=== PATIENT | female | born 1965 | race Caucasian/White ===

== ENCOUNTER 2017-09-18 12:26 | Emergency (ER) | payer MEDICAID ==
[~2017-09-18] VITALS: Ht 175.3 cm; Wt 145.0 kg
[2017-09-18 12:37] VITALS: BP 121/78
== END 2017-09-18 14:13 | disposition home or self-care (01) ==
LOC: ER 12:28
DX: G89.29 Other chronic pain (principal); M25.551 Pain in right hip; M25.561 Pain in right knee; Z88.0 Allergy status to penicillin; Z88.5 Allergy status to narcotic agent
CPT/HCPCS: 73502; 73564; 99284

== ENCOUNTER 2017-09-20 13:14 | Inpatient (IN) | payer MEDICAID ==
[~2017-09-20] VITALS: Ht 175.3 cm; Wt 144.5 kg
[2017-09-20] MEDS ORDERED: levoFLOXACIN-Levaquin 750MG/D5 150 ML IV ONE (13:45)
[2017-09-20 14:11] LABS: BASOPHILS # (AUTO) 0.1 X10'3 (0-0.2); BASOPHILS % (AUTO) 0.6 % (0-1); EOSINOPHILS % (AUTO) 0.4 % (0-6); HEMATOCRIT 34.8 % (35.0-45.0); HEMOGLOBIN 11.7 g/dl (12.0-16.0); LYMPHOCYTES # (AUTO) 1.3 X10'3 (1.1-4.8); MEAN CORPUSCULAR HEMOGLOBIN 28.1 PG (27.0-31.0); MEAN CORPUSCULAR HGB CONC 33.6 % (33.0-36.5); MEAN CORPUSCULAR VOLUME 83.5 FL (78-98); MEAN PLATELET VOLUME 7.7 FL (7.4-10.4); MONOCYTES # (AUTO) 0.5 X10'3 (0-0.9); MONOCYTES % (AUTO) 5.2 % (2-12); NEUTROPHILS # (AUTO) 7.3 X10'3 (1.8-7.7); NEUTROPHILS % (AUTO) 79.8 % (42-75); PLATELET COUNT 286 X10'3 (140-440); RED BLOOD COUNT 4.17 X10'6 (4.20-5.60); RED CELL DISTRIBUTION WIDTH 13.8 % (11.5-14.5); WHITE BLOOD COUNT 9.1 X10'3 (4.5-11.0)
[2017-09-20 14:21] LABS: PARTIAL THROMBOPLASTIN TIME 31 SECONDS (22-32); PROTHROMBIN TIME 10.7 SECONDS (9.0-12.0)
[2017-09-20 14:26] LABS: ALANINE AMINOTRANSFERASE 11 U/L (12-78); ALBUMIN 2.9 G/DL (3.4-5.0); ALBUMIN/GLOBULIN RATIO 0.6 (1.1-1.5); ALKALINE PHOSPHATASE 77 IU/L (46-116); ANION GAP 11 (8-16); ASPARTATE AMINO TRANSFERASE 21 U/L (10-37); BILIRUBIN,TOTAL 0.3 MG/DL (0.1-1.0); BLOOD UREA NITROGEN 15 MG/DL (7-18); BUN/CREATININE RATIO 18.5 (6.6-38.0); CALCIUM 9.8 MG/DL (8.5-10.1); CHLORIDE 102 MMOL/L (99-107); CREATININE 0.81 MG/DL (0.40-0.90); GLUCOSE 181 MG/DL (70-104); MAGNESIUM 1.1 MG/DL (1.5-2.4); POTASSIUM 4.2 MMOL/L (3.5-5.1); SODIUM 142 MMOL/L (135-145); eGFR 74 ML/MIN
[2017-09-20] MEDS ORDERED: diphenhydrAMINE 50 mg/ml inj IV ONE (14:35)
[2017-09-20] MEDS ORDERED: morphine 4 MG/ML inj SYRINge IV ONE (14:35)
[2017-09-20 15:49] LABS: CLARITY,URINE Clear (Clear); COLOR,URINE Yellow (Yellow); GLUCOSE, URINE 100 mg/dl (Neg); KETONES,URINE Negative (Neg); LEUKOCYTE ESTERASE ,URINE Negative (Neg); NITRITES, URINE Negative (Neg); OCCULT BLOOD,URINE Negative (Neg); PH,URINE 5.5 (4.8-8.0); PROTEIN,URINE Negative (Neg); UA COLLECTION TYPE FOLEY CATH; UROBILINOGEN,URINE 0.2 E.U/dL (0.2-1.0)
[2017-09-20 16:10] LABS: URINE HCG NEGATIVE (NEG)
[2017-09-20] MEDS ORDERED: ondansetron/PF 4mg/2ml inj IV PRN ×2 (17:40→18:25)
[2017-09-20] MEDS ORDERED: potassium Cl 40MEQ/NS 500ml 500 ML IV PRN ×2 (17:40)
[2017-09-20] MEDS ORDERED: magnesium 2GM in 50ml NS 50 ML IV PRN (17:40)
[2017-09-20] MEDS ORDERED: HYDROcodone/acetaminophen 5mg/325mg tablet PO PRN (17:40)
[2017-09-20] MEDS: K and/or MAG REPLACEMENT MC SCH (17:40)
[2017-09-20] MEDS ORDERED: acetaminophen 325mg tablet PO PRN ×3 (17:40→18:25)
[2017-09-20] MEDS ORDERED: magnesium hydroxide 30ml (MOM) UD suspension PO PRN ×2 (17:40→18:25)
[2017-09-20] MEDS ORDERED: mag hydrox/Alum hydrox/simeth 30ml oral suspension PO PRN ×2 (17:40→18:25)
[2017-09-20] MEDS ORDERED: magnesium Cl slow-release 64mg tablet PO PRN (17:40)
[2017-09-20] MEDS ORDERED: magnesium 4gm in 100ml NS 100 ML IV PRN (17:40)
[2017-09-20] MEDS ORDERED: potassium Cl 20 mEq SR tablet PO PRN ×2 (17:40)
[2017-09-20] MEDS ORDERED: morphine 2 MG/ML inj. syringe IV PRN (17:40)
[2017-09-20] MEDS ORDERED: bisacodyl 10mg suppository rectal RC STA (17:49)
[2017-09-20] MEDS: HYDROcodone/acetaminophen 10/325mg tab PO PRN ×2 (18:11→22:19)
[2017-09-20] MEDS: normal saline 1000ml 1,000 ML IV SCH (18:55)
[2017-09-20] MEDS: heparin, porcine 5000 units/ml vial SQ SCH (20:03)
[2017-09-20] MEDS: diatr meglu/diatrizoate 30ml oral sol.-(3 dose) bottle PO SCH (20:22)
[2017-09-20] MEDS ORDERED: temazepam 15mg capsule PO PRN (21:00)
[2017-09-20] MEDS ORDERED: CLON2TAB PO (21:55)
[2017-09-20] MEDS ORDERED: GEMF600T3 PO (21:55)
[2017-09-20] MEDS ORDERED: MIRT30TA8 PO (21:55)
[2017-09-20] MEDS ORDERED: GLIP5TAB13 PO (21:55)
[2017-09-20] MEDS ORDERED: PRAV20TA4 PO (21:55)
[2017-09-20] MEDS ORDERED: FLUO20CA39 PO (21:55)
[2017-09-20] MEDS ORDERED: GABA-532 PO (21:55)
[2017-09-20] MEDS ORDERED: METF500T PO (21:55)
[2017-09-21] MEDS: HYDROcodone/acetaminophen 10/325mg tab PO PRN ×4 (02:54→19:00)
[2017-09-21 05:48] LABS: BASOPHILS # (AUTO) 0.1 X10'3 (0-0.2); BASOPHILS % (AUTO) 1.3 % (0-1); EOSINOPHILS # (AUTO) 0.1 X10'3 (0-0.9); EOSINOPHILS % (AUTO) 1.6 % (0-6); HEMATOCRIT 32.6 % (35.0-45.0); HEMOGLOBIN 11.1 g/dl (12.0-16.0); LYMPHOCYTES # (AUTO) 1.3 X10'3 (1.1-4.8); LYMPHOCYTES % (AUTO) 16.4 % (21-51); MEAN CORPUSCULAR HEMOGLOBIN 28.5 PG (27.0-31.0); MEAN CORPUSCULAR VOLUME 83.6 FL (78-98); MEAN PLATELET VOLUME 8.1 FL (7.4-10.4); MONOCYTES # (AUTO) 0.6 X10'3 (0-0.9); MONOCYTES % (AUTO) 7.1 % (2-12); NEUTROPHILS # (AUTO) 5.8 X10'3 (1.8-7.7); NEUTROPHILS % (AUTO) 73.6 % (42-75); PLATELET COUNT 274 X10'3 (140-440); RED BLOOD COUNT 3.89 X10'6 (4.20-5.60); RED CELL DISTRIBUTION WIDTH 13.6 % (11.5-14.5); WHITE BLOOD COUNT 7.9 X10'3 (4.5-11.0)
[2017-09-21 06:17] LABS: PROTHROMBIN TIME 10.7 SECONDS (9.0-12.0)
[2017-09-21 06:22] LABS: ALBUMIN 2.5 G/DL (3.4-5.0); ANION GAP 12 (8-16); BLOOD UREA NITROGEN 13 MG/DL (7-18); BUN/CREATININE RATIO 16.7 (6.6-38.0); CALCIUM 9.6 MG/DL (8.5-10.1); CHLORIDE 100 MMOL/L (99-107); CREATININE 0.78 MG/DL (0.40-0.90); GLUCOSE 189 MG/DL (70-104); MAGNESIUM 2.1 MG/DL (1.5-2.4); POTASSIUM 3.7 MMOL/L (3.5-5.1); SODIUM 141 MMOL/L (135-145); TOTAL CARBON DIOXIDE 29.1 MMOL/L (24-32); eGFR 78 ML/MIN
[2017-09-21 07:15] VITALS: BP 132/67
[2017-09-21] MEDS: diatr meglu/diatrizoate 30ml oral sol.-(3 dose) bottle PO SCH ×2 (07:47→10:06)
[2017-09-21] MEDS ORDERED: clonazePAM 1mg tablet PO ONE (08:00)
[2017-09-21] MEDS: K and/or MAG REPLACEMENT MC SCH (08:00)
[2017-09-21] MEDS: heparin, porcine 5000 units/ml vial SQ SCH ×2 (09:01→21:30)
[2017-09-21 10:00] VITALS: BP 126/70
[2017-09-21] MEDS: MESSAGE TO NURSING PO NR (10:00)
[2017-09-21] MEDS ORDERED: iohexol 350MG/ML 100ml bottle IV ONE (10:03)
[2017-09-21] MEDS ORDERED: iohexol 300mg/ml 100ml inj. ONE (10:06)
[2017-09-21] MEDS: clonazePAM 1mg tablet PO SCH ×4 (10:45→21:29)
[2017-09-21] MEDS ORDERED: magnesium citrate 296ml oral solution PO ONE (12:40)
[2017-09-21 18:00] VITALS: BP 130/73
[2017-09-21] MEDS: metFORMIN 500mg tablet PO SCH (20:00)
[2017-09-21] MEDS: glipizide 5mg tablet PO SCH (20:00)
[2017-09-21] MEDS: mirtazapine 15mg tablet PO SCH (21:28)
[2017-09-21] MEDS: gemfibrozil 600mg tablet PO SCH (21:28)
[2017-09-21] MEDS: gabapentin 300mg capsule PO SCH (21:29)
[2017-09-21 22:30] VITALS: BP 141/82
[2017-09-22] MEDS: HYDROcodone/acetaminophen 10/325mg tab PO PRN ×4 (04:54→23:57)
[2017-09-22 07:03] LABS: BASOPHILS % (AUTO) 0.6 % (0-1); EOSINOPHILS # (AUTO) 0.1 X10'3 (0-0.9); EOSINOPHILS % (AUTO) 2.1 % (0-6); HEMOGLOBIN 10.9 g/dl (12.0-16.0); LYMPHOCYTES # (AUTO) 1.1 X10'3 (1.1-4.8); LYMPHOCYTES % (AUTO) 16.7 % (21-51); MEAN CORPUSCULAR HEMOGLOBIN 27.9 PG (27.0-31.0); MEAN CORPUSCULAR HGB CONC 32.9 % (33.0-36.5); MEAN CORPUSCULAR VOLUME 84.7 FL (78-98); MEAN PLATELET VOLUME 8.1 FL (7.4-10.4); MONOCYTES # (AUTO) 0.5 X10'3 (0-0.9); MONOCYTES % (AUTO) 6.8 % (2-12); NEUTROPHILS % (AUTO) 73.8 % (42-75); PLATELET COUNT 303 X10'3 (140-440); RED CELL DISTRIBUTION WIDTH 13.7 % (11.5-14.5); WHITE BLOOD COUNT 6.8 X10'3 (4.5-11.0)
[2017-09-22 07:15] VITALS: BP 145/82
[2017-09-22 07:15] LABS: ALBUMIN 2.4 G/DL (3.4-5.0); ANION GAP 12 (8-16); BLOOD UREA NITROGEN 17 MG/DL (7-18); CALCIUM 9.3 MG/DL (8.5-10.1); CHLORIDE 99 MMOL/L (99-107); CREATININE 0.68 MG/DL (0.40-0.90); GLUCOSE 201 MG/DL (70-104); MAGNESIUM 1.7 MG/DL (1.5-2.4); POTASSIUM 3.9 MMOL/L (3.5-5.1); SODIUM 139 MMOL/L (135-145); TOTAL CARBON DIOXIDE 27.9 MMOL/L (24-32); eGFR > 90 ML/MIN
[2017-09-22 07:17] LABS: INR 1.1 INR; PROTHROMBIN TIME 10.9 SECONDS (9.0-12.0)
[2017-09-22] MEDS: metFORMIN 500mg tablet PO SCH ×2 (07:30→17:30)
[2017-09-22] MEDS: glipizide 5mg tablet PO SCH ×2 (07:37→20:00)
[2017-09-22] MEDS: clonazePAM 1mg tablet PO SCH ×6 (07:37→21:21)
[2017-09-22] MEDS: FLUoxetine 20mg capsule PO SCH (07:53)
[2017-09-22] MEDS: atorvastatin 10mg tablet PO SCH (07:53)
[2017-09-22] MEDS: gabapentin 300mg capsule PO SCH ×2 (07:53→21:20)
[2017-09-22] MEDS: heparin, porcine 5000 units/ml vial SQ SCH ×2 (07:54→21:22)
[2017-09-22] MEDS: gemfibrozil 600mg tablet PO SCH ×2 (07:57→21:22)
[2017-09-22] MEDS: K and/or MAG REPLACEMENT MC SCH (08:00)
[2017-09-22] MEDS: MESSAGE TO NURSING PO NR (10:00)
[2017-09-22 18:00] VITALS: BP 160/90
[2017-09-22] MEDS: mirtazapine 15mg tablet PO SCH (21:22)
[2017-09-22 22:00] VITALS: BP 157/82
[2017-09-22] MEDS ORDERED: insulin glargine (Lantus) pen - multi-dose SQ ONE (22:10)
[2017-09-22] MEDS: normal saline 1000ml 1,000 ML IV SCH (22:44)
[2017-09-23] MEDS: HYDROcodone/acetaminophen 10/325mg tab PO PRN ×3 (05:25→20:46)
[2017-09-23 06:00] VITALS: BP 138/85
[2017-09-23] MEDS: metFORMIN 500mg tablet PO SCH ×2 (07:30→17:31)
[2017-09-23] MEDS: FLUoxetine 20mg capsule PO SCH (07:34)
[2017-09-23] MEDS: gabapentin 300mg capsule PO SCH ×2 (07:36→20:44)
[2017-09-23] MEDS: clonazePAM 1mg tablet PO SCH ×3 (07:36→20:44)
[2017-09-23] MEDS: atorvastatin 10mg tablet PO SCH (07:36)
[2017-09-23] MEDS: heparin, porcine 5000 units/ml vial SQ SCH ×2 (07:37→20:45)
[2017-09-23] MEDS: K and/or MAG REPLACEMENT MC SCH (08:00)
[2017-09-23] MEDS: glipizide 5mg tablet PO SCH ×2 (08:00→20:44)
[2017-09-23] MEDS: gemfibrozil 600mg tablet PO SCH ×2 (09:46→20:44)
[2017-09-23] MEDS: MESSAGE TO NURSING PO NR (10:00)
[2017-09-23 11:27] VITALS: BP 120/80
[2017-09-23 18:30] VITALS: BP 140/78
[2017-09-23] MEDS: mirtazapine 15mg tablet PO SCH (20:44)
[2017-09-23 22:00] VITALS: BP 122/65
[2017-09-24] MEDS: HYDROcodone/acetaminophen 10/325mg tab PO PRN ×3 (03:50→12:41)
[2017-09-24 06:00] VITALS: BP 117/67
[2017-09-24] MEDS: K and/or MAG REPLACEMENT MC SCH (08:00)
[2017-09-24] MEDS: gemfibrozil 600mg tablet PO SCH (08:24)
[2017-09-24] MEDS: atorvastatin 10mg tablet PO SCH (08:24)
[2017-09-24] MEDS: clonazePAM 1mg tablet PO SCH ×2 (08:24→12:41)
[2017-09-24] MEDS: glipizide 5mg tablet PO SCH (08:24)
[2017-09-24] MEDS: FLUoxetine 20mg capsule PO SCH (08:25)
[2017-09-24] MEDS: gabapentin 300mg capsule PO SCH (08:25)
[2017-09-24] MEDS: metFORMIN 500mg tablet PO SCH (08:25)
[2017-09-24] MEDS: heparin, porcine 5000 units/ml vial SQ SCH (08:25)
[2017-09-24] MEDS ORDERED: ibuprofen tablet 400 MG TABLET PO PRN (09:45)
[2017-09-24 10:00] VITALS: BP 119/81
== END 2017-09-24 14:00 | DRG 861 ==
LOC: ER 13:15 → ED HOLD 17:39 → EDBEDREQ 09-21 06:38 → ORTHO 4S 09-21 07:10
PROVIDERS: ADMIT Family Medicine; ATTEND Family Medicine
PROC: BW211ZZ Computerized Tomography (CT Scan) of Abdomen and Pelvis using Low Osmolar Contrast (ICD-10-PCS; principal; 2017-09-21)
DX: G89.29 Other chronic pain (principal); E11.42 Type 2 diabetes mellitus with diabetic polyneuropathy; E44.0 Moderate protein-calorie malnutrition; Z68.42 Body mass index [BMI] 45.0-49.9, adult; K59.00 Constipation, unspecified; R32 Unspecified urinary incontinence; K43.9 Ventral hernia without obstruction or gangrene; M19.90 Unspecified osteoarthritis, unspecified site; E66.01 Morbid (severe) obesity due to excess calories; F32.9 Major depressive disorder, single episode, unspecified; M25.531 Pain in right wrist; Z88.0 Allergy status to penicillin; Z88.6 Allergy status to analgesic agent; Z91.030 Bee allergy status; Z79.84 Long term (current) use of oral hypoglycemic drugs; Z79.899 Other long term (current) drug therapy
CPT/HCPCS: 36415; 70450; 71045; 74177; 80048; 80053; 81003; 81025; 82948; 83605; 83735; 83880; 84145; 85025; 85610; 85730; 87040; 87070; 93005; 96374; 97110; 97161; 97530; 99285; C1758; J1644; J1815; J1956; J3475; J7030; Q9963; Q9967

== ENCOUNTER 2024-02-17 14:02 | Inpatient (IN) | payer MEDICAID ==
[~2024-02-17] VITALS: Ht 170.2 cm; Wt 113.0 kg
[~2024-02-17 14:02] MED LIST: CLON-852 PO; FLUO20CA39 PO; GABA-532 PO; GEMF600T89 PO; GLIP5TAB23 PO; METF500T PO; MIRT-88 PO; PRAV20TA4 PO
[2024-02-17 14:33] LABS: BASOPHILS # (AUTO) 0.1 X10'3 (0-0.2); BASOPHILS % (AUTO) 1.2 % (0-1); EOSINOPHILS # (AUTO) 0.2 X10'3 (0-0.9); EOSINOPHILS % (AUTO) 3.1 % (0-6); HEMATOCRIT 38.3 % (35.0-45.0); HEMOGLOBIN 12.1 g/dl (12.0-16.0); LYMPHOCYTES # (AUTO) 1.9 X10'3 (1.1-4.8); LYMPHOCYTES % (AUTO) 35.9 % (21-51); MEAN CORPUSCULAR HEMOGLOBIN 24.9 PG (27.0-31.0); MEAN CORPUSCULAR HGB CONC 31.7 g/dL (33.0-36.5); MEAN CORPUSCULAR VOLUME 78.6 FL (78-98); MEAN PLATELET VOLUME 8.2 FL (7.4-10.4); MONOCYTES # (AUTO) 0.3 X10'3 (0-0.9); MONOCYTES % (AUTO) 6.5 % (2-12); NEUTROPHILS # (AUTO) 2.8 X10'3 (1.8-7.7); NEUTROPHILS % (AUTO) 53.3 % (42-75); PLATELET COUNT 268 X10'3 (140-440); RED BLOOD COUNT 4.87 X10'6 (4.20-5.60); RED CELL DISTRIBUTION WIDTH 15.3 % (11.5-14.5); WHITE BLOOD COUNT 5.3 X10'3 (4.5-11.0)
[2024-02-17] MEDS: normal saline 1000ML IV soln IV ONE (14:49)
[2024-02-17 15:10] LABS: ALBUMIN 3.1 G/DL (3.4-5.0); ANION GAP 10 (8-16); BLOOD UREA NITROGEN 30 MG/DL (7-18); CALCIUM 9.5 MG/DL (8.5-10.1); CHLORIDE 108 MMOL/L (99-107); CREATININE 1.25 MG/DL (0.40-0.90); GLUCOSE 85 MG/DL (70-104); POTASSIUM 4.8 MMOL/L (3.5-5.1); PRO BRAIN NATRIURETIC PEPTIDE 160 PG/ML (0-125); SODIUM 143 MMOL/L (135-145); TOTAL CARBON DIOXIDE 24.6 MMOL/L (24-32); eCRCL 47 ML/MIN; eGFR 44 ML/MIN
[2024-02-17] MEDS: HYDROcodone/acetaminophen 10/325mg tab PO ONE (16:01)
[2024-02-17 17:47] LABS: BILIRUBIN,URINE NEGATIVE (Neg); CLARITY,URINE CLOUDY (Clear); COLOR,URINE YELLOW (Yellow); GLUCOSE, URINE NEGATIVE (Neg); KETONES,URINE NEGATIVE (Neg); LEUKOCYTE ESTERASE ,URINE SMALL (Neg); NITRITES, URINE POSITIVE (Neg); OCCULT BLOOD,URINE NEGATIVE (Neg); PH,URINE 5.5 (4.8-8.0); PROTEIN,URINE NEGATIVE (Neg); UROBILINOGEN,URINE 0.2 E.U/dL (0.2-1.0)
[2024-02-17 17:51] LABS: UA COLLECTION TYPE NON-SPECIFIED
[2024-02-17 18:07] LABS: HYALINE CASTS 0-3 /LPF (NEGATIVE); SQUAMOUS EPITHELIAL CELL,UR MODERATE /LPF (FEW)
[2024-02-17 18:08] LABS: BACTERIA,URINE 1+ /HPF (Neg); RBC,URINE 0-2 /HPF (0-2); WBC,URINE 0-4 /HPF (0-4)
[2024-02-17] MEDS ORDERED: HYDROmorphone inj. 0.5 MG/0.5 ML DISP.SYRIN IV PRN (20:10)
[2024-02-17] MEDS ORDERED: magnesium sulf-water 2g/50mL 50 ML IV PRN (20:10)
[2024-02-17] MEDS ORDERED: magnesium hydroxide 30ml (MOM) UD suspension PO PRN (20:10)
[2024-02-17] MEDS ORDERED: mag hydrox/Alum hydrox/simeth 30ml oral suspension PO PRN (20:10)
[2024-02-17] MEDS ORDERED: bisacodyl 10mg suppository rectal RC PRN (20:10)
[2024-02-17] MEDS ORDERED: acetaminophen 325mg tablet PO PRN (20:10)
[2024-02-17] MEDS ORDERED: magnesium sulf-water 4G/100mL 100 ML IV PRN (20:10)
[2024-02-17] MEDS ORDERED: potassium Cl 20 mEq SR tablet PO PRN ×2 (20:10)
[2024-02-17] MEDS ORDERED: ondansetron/PF 4mg/2ml inj IV PRN (20:10)
[2024-02-17] MEDS ORDERED: magnesium Cl slow-release 64mg tablet PO PRN (20:10)
[2024-02-17] MEDS ORDERED: morphine 2 MG/ML inj. syringe IV PRN ×2 (20:10)
[2024-02-17] MEDS ORDERED: potassium Cl 40MEQ/1/2NS 520ml 520 ML IV PRN (20:10)
[2024-02-17] MEDS: CefTRIAXone/D5W-Rocephin 1gm 50 ML IV ONE (20:38)
[2024-02-17 20:58] LABS: APTT 27 SECONDS (22-32); PROTHROMBIN TIME 10.9 SECONDS (9.0-12.0)
[2024-02-17 21:39] LABS: HEMOGLOBIN A1C 5.7 % (4.5-6.2)
[2024-02-17 21:51] LABS: CHOL/HDL RATIO 2.8 (0.00-4.99); CHOLESTEROL 141 MG/DL (0-200); HDL CHOLESTEROL 51 MG/DL (35-60); LDL CHOLESTEROL 70 MG/DL (50-100); THYROID STIMULATING HORMONE 2.31 ulU/ml (0.34-4.50); TRIGLYCERIDES 131 MG/DL (20-135)
[2024-02-17 23:53] VITALS: BP 144/73; PULSE 67; TEMP 97.7; O2SAT 97
[2024-02-18] MEDS: gabapentin 300mg capsule PO SCH ×2 (01:40→20:44)
[2024-02-18 04:45] LABS: BASOPHILS % (AUTO) 0.2 % (0-1); EOSINOPHILS # (AUTO) 0.2 X10'3 (0-0.9); EOSINOPHILS % (AUTO) 3.1 % (0-6); HEMATOCRIT 35.8 % (35.0-45.0); HEMOGLOBIN 11.2 g/dl (12.0-16.0); LYMPHOCYTES % (AUTO) 36.1 % (21-51); MEAN CORPUSCULAR HEMOGLOBIN 24.5 PG (27.0-31.0); MEAN CORPUSCULAR HGB CONC 31.3 g/dL (33.0-36.5); MEAN CORPUSCULAR VOLUME 78.3 FL (78-98); MEAN PLATELET VOLUME 8.2 FL (7.4-10.4); MONOCYTES # (AUTO) 0.3 X10'3 (0-0.9); MONOCYTES % (AUTO) 6.2 % (2-12); NEUTROPHILS % (AUTO) 54.4 % (42-75); PLATELET COUNT 262 X10'3 (140-440); RED BLOOD COUNT 4.57 X10'6 (4.20-5.60); RED CELL DISTRIBUTION WIDTH 15.2 % (11.5-14.5); WHITE BLOOD COUNT 5.5 X10'3 (4.5-11.0)
[2024-02-18 05:05] LABS: ALANINE AMINOTRANSFERASE 25 U/L (12-78); ALBUMIN 2.8 G/DL (3.4-5.0); ALBUMIN/GLOBULIN RATIO 0.8 (1.1-1.5); ALKALINE PHOSPHATASE 56 IU/L (46-116); ANION GAP 7 (8-16); ASPARTATE AMINO TRANSFERASE 16 U/L (10-37); BILIRUBIN,TOTAL 0.2 MG/DL (0.1-1.0); BLOOD UREA NITROGEN 32 MG/DL (7-18); BUN/CREATININE RATIO 28.6 (10.0-20.0); CHLORIDE 110 MMOL/L (99-107); CREATININE 1.12 MG/DL (0.40-0.90); GLUCOSE 108 MG/DL (70-104); MAGNESIUM 1.4 MG/DL (1.5-2.4); POTASSIUM 4.3 MMOL/L (3.5-5.1); SODIUM 142 MMOL/L (135-145); TOTAL CARBON DIOXIDE 24.7 MMOL/L (24-32); TOTAL PROTEIN 6.2 G/DL (6.4-8.2); eCRCL 53 ML/MIN; eGFR 50 ML/MIN
[2024-02-18 06:00] VITALS: BP 130/70; PULSE 71; RESP 16; TEMP 97.9; O2SAT 93
[2024-02-18] MEDS: K and/or MAG REPLACEMENT MC SCH (08:00)
[2024-02-18] MEDS: lactose-reduced food (Ensure Enlive) - 237ml bottle PO SCH (08:00)
[2024-02-18] MEDS: docusate sod 100mg capsule PO SCH (09:00)
[2024-02-18] MEDS: heparin, porcine 5000 units/ml vial SQ SCH (09:01)
[2024-02-18] MEDS: CefTRIAXone/D5W-Rocephin 1gm 50 ML IV SCH (09:02)
[2024-02-18] MEDS: HYDROcodone/acetaminophen 5mg/325mg tablet PO PRN (09:13)
[2024-02-18 09:15] VITALS: RESP 18; O2SAT 96
[2024-02-18 10:00] VITALS: BP 125/77; PULSE 66; RESP 15; TEMP 98.2; O2SAT 96
[2024-02-18] MEDS: gabapentin 300mg capsule PO ONE (10:58)
[2024-02-18] MEDS: normal saline 1000ml 1,000 ML IV SCH (10:59)
[2024-02-18 18:00] VITALS: BP 129/72; PULSE 66; RESP 18; TEMP 98.1; O2SAT 96
[2024-02-18] MEDS: clonazePAM 0.5mg tablet PO PRN (18:11)
[2024-02-18 20:00] VITALS: RESP 18; O2SAT 96
[2024-02-18] MEDS: mirtazapine 15mg tablet PO SCH (20:44)
[2024-02-18] MEDS: nystatin 15 GM powder TP SCH (20:46)
[2024-02-18 22:00] VITALS: BP 136/61; PULSE 79; RESP 16; TEMP 97.4; O2SAT 97
[2024-02-19] VITALS (7 sets, daily range): BP systolic 124–159; BP diastolic 44–88; PULSE 67–81; RESP 14–18; TEMP 97.2–98.5; O2SAT 95–100
[2024-02-19 04:54] LABS: BASOPHILS # (AUTO) 0.1 X10'3 (0-0.2); BASOPHILS % (AUTO) 1.5 % (0-1); EOSINOPHILS # (AUTO) 0.2 X10'3 (0-0.9); EOSINOPHILS % (AUTO) 4.2 % (0-6); HEMATOCRIT 35.5 % (35.0-45.0); HEMOGLOBIN 11.2 g/dl (12.0-16.0); LYMPHOCYTES # (AUTO) 1.9 X10'3 (1.1-4.8); LYMPHOCYTES % (AUTO) 47.8 % (21-51); MEAN CORPUSCULAR HEMOGLOBIN 24.4 PG (27.0-31.0); MEAN CORPUSCULAR HGB CONC 31.4 g/dL (33.0-36.5); MEAN CORPUSCULAR VOLUME 77.7 FL (78-98); MEAN PLATELET VOLUME 7.5 FL (7.4-10.4); MONOCYTES # (AUTO) 0.3 X10'3 (0-0.9); MONOCYTES % (AUTO) 7.1 % (2-12); NEUTROPHILS # (AUTO) 1.5 X10'3 (1.8-7.7); NEUTROPHILS % (AUTO) 39.4 % (42-75); PLATELET COUNT 234 X10'3 (140-440); RED BLOOD COUNT 4.56 X10'6 (4.20-5.60); RED CELL DISTRIBUTION WIDTH 15.1 % (11.5-14.5); WHITE BLOOD COUNT 3.9 X10'3 (4.5-11.0)
[2024-02-19 05:12] LABS: ALANINE AMINOTRANSFERASE 19 U/L (12-78); ALBUMIN 2.6 G/DL (3.4-5.0); ALBUMIN/GLOBULIN RATIO 0.8 (1.1-1.5); ALKALINE PHOSPHATASE 59 IU/L (46-116); ANION GAP 6 (8-16); ASPARTATE AMINO TRANSFERASE 14 U/L (10-37); BILIRUBIN,TOTAL 0.2 MG/DL (0.1-1.0); BLOOD UREA NITROGEN 27 MG/DL (7-18); CALCIUM 9.1 MG/DL (8.5-10.1); CHLORIDE 110 MMOL/L (99-107); GLUCOSE 125 MG/DL (70-104); MAGNESIUM 1.4 MG/DL (1.5-2.4); POTASSIUM 4.2 MMOL/L (3.5-5.1); SODIUM 141 MMOL/L (135-145); TOTAL CARBON DIOXIDE 25.4 MMOL/L (24-32); eCRCL 59 ML/MIN; eGFR 57 ML/MIN
[2024-02-19] MEDS: FLUoxetine 20mg capsule PO SCH (09:34)
[2024-02-19] MEDS: atorvastatin 10mg tablet PO SCH (09:34)
[2024-02-20 05:01] LABS: HEMATOCRIT 35.4 % (35.0-45.0); MEAN CORPUSCULAR VOLUME 78.6 FL (78-98); RED BLOOD COUNT 4.51 X10'6 (4.20-5.60)
[2024-02-20 05:02] LABS: BASOPHILS % (AUTO) 0.5 % (0-1); EOSINOPHILS # (AUTO) 0.2 X10'3 (0-0.9); EOSINOPHILS % (AUTO) 4.1 % (0-6); LYMPHOCYTES # (AUTO) 2.1 X10'3 (1.1-4.8); LYMPHOCYTES % (AUTO) 52.8 % (21-51); MEAN CORPUSCULAR HEMOGLOBIN 24.5 PG (27.0-31.0); MEAN CORPUSCULAR HGB CONC 31.2 g/dL (33.0-36.5); MEAN PLATELET VOLUME 8.6 FL (7.4-10.4); MONOCYTES # (AUTO) 0.4 X10'3 (0-0.9); MONOCYTES % (AUTO) 9.7 % (2-12); NEUTROPHILS # (AUTO) 1.3 X10'3 (1.8-7.7); NEUTROPHILS % (AUTO) 32.9 % (42-75); PLATELET COUNT 236 X10'3 (140-440); RED CELL DISTRIBUTION WIDTH 15.1 % (11.5-14.5)
[2024-02-20 05:15] LABS: ALANINE AMINOTRANSFERASE 15 U/L (12-78); ALBUMIN 2.5 G/DL (3.4-5.0); ALBUMIN/GLOBULIN RATIO 0.7 (1.1-1.5); ALKALINE PHOSPHATASE 56 IU/L (46-116); ANION GAP 6 (8-16); ASPARTATE AMINO TRANSFERASE 10 U/L (10-37); BILIRUBIN,TOTAL 0.1 MG/DL (0.1-1.0); BLOOD UREA NITROGEN 29 MG/DL (7-18); BUN/CREATININE RATIO 26.9 (10.0-20.0); CALCIUM 8.9 MG/DL (8.5-10.1); CHLORIDE 112 MMOL/L (99-107); CREATININE 1.08 MG/DL (0.40-0.90); GLUCOSE 135 MG/DL (70-104); MAGNESIUM 1.4 MG/DL (1.5-2.4); POTASSIUM 4.3 MMOL/L (3.5-5.1); SODIUM 145 MMOL/L (135-145); TOTAL CARBON DIOXIDE 27.3 MMOL/L (24-32); TOTAL PROTEIN 5.9 G/DL (6.4-8.2); eCRCL 55 ML/MIN; eGFR 52 ML/MIN
[2024-02-20 05:23] LABS: MICROCYTOSIS 1+; PLATELET ESTIMATE NORMAL; TOTAL CELLS COUNTED 100
[2024-02-20 06:00] VITALS: BP 139/74; PULSE 66; RESP 16; TEMP 98; O2SAT 96
[2024-02-20 10:00] VITALS: RESP 16; O2SAT 96
[2024-02-20] MEDS ORDERED: CIPR-202 PO (14:57)
[2024-02-20] MEDS ORDERED: CLIN75SO10 PO (15:00)
[2024-02-20 16:17] VITALS: RESP 18
== END 2024-02-20 16:45 | disposition home health service (06) | DRG 422 ==
LOC: ER 14:02 → ED HOLD 20:12 → SUR 3N 23:40
PROVIDERS: ADMIT Internal Medicine Critical Care Medicine; ATTEND Internal Medicine
DX: E86.0 Dehydration (principal); L89.153 Pressure ulcer of sacral region, stage 3; N17.9 Acute kidney failure, unspecified; E11.42 Type 2 diabetes mellitus with diabetic polyneuropathy; E66.01 Morbid (severe) obesity due to excess calories; E78.5 Hyperlipidemia, unspecified; F31.9 Bipolar disorder, unspecified; N39.0 Urinary tract infection, site not specified; Z79.899 Other long term (current) drug therapy; Z88.5 Allergy status to narcotic agent; Z88.0 Allergy status to penicillin; Z91.030 Bee allergy status; Z79.84 Long term (current) use of oral hypoglycemic drugs; Z68.39 Body mass index [BMI] 39.0-39.9, adult
CPT/HCPCS: 36415; 70450; 71045; 80048; 80053; 80061; 81001; 82948; 83036; 83605; 83735; 83880; 84145; 84443; 84484; 85007; 85025; 85610; 85730; 87040; 87070; 87077; 87081; 87088; 87186; 93005; 96360; 97116; 97161; 97530; 99285; A4649; A6196; A6212; A6213; A6253; A6449; G0378; J0696; J1644; J7030

== ENCOUNTER 2024-08-27 12:00 | Emergency (ER) | payer MEDICAID ==
[~2024-08-27] VITALS: Ht 175.3 cm; Wt 115.5 kg
[~2024-08-27 12:00] MED LIST changes: -CLON-852 PO; -GEMF600T89 PO; -GLIP5TAB23 PO; -METF500T PO
[2024-08-27 12:04] VITALS: BP 175/105; PULSE 79; RESP 15; TEMP 97.8; O2SAT 98
[2024-08-27] MEDS ORDERED: CEPH-585 PO (14:14)
== END 2024-08-27 14:32 | disposition home or self-care (01) ==
LOC: ER 12:01
DX: E11.621 Type 2 diabetes mellitus with foot ulcer (principal); L97.518 Non-pressure chronic ulcer of other part of right foot with other specified severity; L03.031 Cellulitis of right toe; E11.40 Type 2 diabetes mellitus with diabetic neuropathy, unspecified; F12.90 Cannabis use, unspecified, uncomplicated; Z88.5 Allergy status to narcotic agent; Z88.0 Allergy status to penicillin; Z79.899 Other long term (current) drug therapy
CPT/HCPCS: 82948; 99283